=== PATIENT | male | born 1965 | race Caucasian/White ===

== ENCOUNTER 2018-02-11 11:04 | Emergency (ER) | payer OTHER ==
[2018-02-11 12:12] VITALS: BP 157/93
--- NOTE | 2018-02-11 12:54 | UC ---
Lower Extremity/Ankle HPI - HPI Summary HPI Summary: 52-year-old male presents with complaints of left knee pain. States he sustained a twisting injury to the knee on November 26 at work when he accidentally slipped in a pile of dirt on the floor. Complains of sharp pain to the medial aspect of the left knee. Nonradiating. Worsens with ambulation. Has taken [id number] ibuprofen with some relief. He has noted some clicking in the knee. Denies bruising, swelling, erythema, numbness, tingling, or weakness of the lower extremity, swelling or tenderness. - History of Current Complaint Chief Complaint: UCLowerExtremity Stated Complaint: WC - LEFT KNEE PAIN Time Seen by Provider: 02/11/18 12:33 Hx Obtained From: Patient Onset/Duration: Sudden Onset, Lasting Weeks Severity Currently: Moderate Pain Intensity: 5 Aggravating Factor(s): Standing, Ambulation Alleviating Factor(s): Rest, OTC Meds Able to Bear Weight: Yes - Allergies/Home Medications Allergies/Adverse Reactions: Allergies Allergy/AdvReac Type Severity Reaction Status Date / Time No Known Allergies Allergy Verified 02/11/18 12:00 Home Medications: Home Medications Aspirin 81 mg CHEW TAB* 1 tab DAILY 02/11/18 [History Confirmed 02/11/18] Levothyroxine TAB* [Synthroid 100 MCG TAB*] 1 tab QAM 02/11/18 [History Confirmed 02/11/18] Rosuvastatin (NF) [Crestor (NF)] 1 tab QPM 02/11/18 [History Confirmed 02/11/18] PMH/Surg Hx/FS Hx/Imm Hx Endocrine History: Hypothyroidism, Dyslipidemia - Surgical History Surgical History: Yes Surgery Procedure, Year, and Place: [place] - Family History Family History: Noncontributory - Social History Occupation: Employed Full-time Lives: With Family Alcohol Use: Occasionally Substance Use Type: None Smoking Status (MU): Heavy Every Day Tobacco Smoker Type: Cigarettes Amount Used/How Often: 10 cigs/day Length of Time of Smoking/Using Tobacco: since 1981 Review of Systems Constitutional: Negative Skin: Negative Respiratory: Negative Cardiovascular: Negative Motor: Negative Neurovascular: Negative Musculoskeletal: Other: - See HPI Neurological: Negative Is Patient Immunocompromised?: No All Other Systems Reviewed And Are Negative: Yes Physical Exam Triage Information Reviewed: Yes Appearance: Well-Appearing, Well-Nourished Vital Signs: Initial Vital Signs Temp 97.9 F 02/11/18 12:01 Pulse 76 02/11/18 12:01 Resp 16 02/11/18 12:01 BP 157/93 02/11/18 12:01 Pulse Ox 99 02/11/18 12:01 Respiratory: Positive: No respiratory distress Cardiovascular: Positive: Pulses Normal, Brisk Capillary Refill Musculoskeletal: Positive: ROM Intact, No Edema, Other: - Mild tenderness to the medial joint line with palpation. Mild crepitus anterior knee with passive ROM. Neurological: Positive: Alert, Other: - Sensation intact distally Skin Exam: Normal Diagnostics - Radiology No standard instances Xray Interpretation: No Acute Changes Radiology Interpretation Completed By: ED Physician - No acute pathology., Radiologist - Patient Name: ELLE DAVEY JR Medical Record#: [id number] Ordering Physician: Lobito Grijalva NP Acct.#: [id number] : 1965 Age : 52 Sex: M Location: [facility] Exam Date: 02/11/18 124 ADM Status : REG ER Order Information: KNEE LEFT 4+ VWS Accession Number: [id number] CPT : 68334 INDICATION: Subpatellar knee pain since a fall injury November 26, 2017 COMPARISON: None TECHNIQUE: 4 view radiograph of the left knee. FINDINGS: The visualized bones are well-corticated and properly aligned. The joint spaces are properly maintained. There is no radiographic evidence of joint effusion. There is no acute fracture, dislocation or other focal bony abnormality. IMPRESSION: Normal knee radiograph as described above. Lower Extremity Course/Dx - Course Course Of Treatment: 52-year-old male presents with left knee pain from a twisting injury to the knee he sustained at work on November 26. Exam unremarkable except for some mild tenderness to the medial joint line and mild crepitus. X- ray was normal. His pain is likely from an internal derangement of the knee. Will manage pain with NSAIDs and have patient f/u with orthopedic surgery for further evaluation and treatment. - Differential Dx/Diagnosis Differential Diagnosis/HQI/PQRI: Sprain, Tendonitis, Other - Internal derangement of knee Provider Diagnoses: Left knee pain Discharge - Sign-Out/Discharge Documenting (check all that apply): Patient Departure All imaging exams completed and their final reports reviewed: Yes - Discharge Plan Condition: Stable Disposition: HOME Prescriptions: Naproxen [Naproxen 500 mg tab] 500 mg PO BID PRN #30 tablet PRN Reason: Pain Patient Education Materials: Knee Pain (ED) Referrals: Evan Recinos PA [Primary Care Provider] - Ernesto Adams MD [Medical Doctor] - 7 Days (Call for appointment) Additional Instructions: The x-ray performed in the clinic today was normal. I suspect her knee pain is a soft tissue injury, likely a tear of the medial collateral ligament. Take naproxen 1 tablet every 12 hours as needed for pain. You may continue to walk and bear weight as tolerated. I have given you a referral to Dr. Adams, orthopedic surgery, for follow-up and further evaluation. You'll need to call for an appointment. - Billing Disposition and Condition Condition: STABLE Disposition: Home
--- NOTE | 2018-02-11 13:10 | RAD ---
INDICATION: Subpatellar knee pain since a fall injury November 26, 2017 COMPARISON: None TECHNIQUE: 4 view radiograph of the left knee. FINDINGS: The visualized bones are well-corticated and properly aligned. The joint spaces are properly maintained. There is no radiographic evidence of joint effusion. There is no acute fracture, dislocation or other focal bony abnormality. IMPRESSION: Normal knee radiograph as described above. If the patient's symptoms persist, follow-up imaging is recommended.
== END 2018-02-11 13:21 | disposition home or self-care (01) ==
LOC: UCCORT 11:04
DX: M25.562 Pain in left knee (principal); F17.210 Nicotine dependence, cigarettes, uncomplicated; E03.9 Hypothyroidism, unspecified; E78.5 Hyperlipidemia, unspecified; Z79.82 Long term (current) use of aspirin
CPT/HCPCS: 99202; G0463